=== PATIENT | male | born 1985 | race Caucasian/White ===

== ENCOUNTER 2018-03-23 07:18 | Inpatient (IN) | payer BC, OTHER ==
[~2018-03-23] VITALS: Ht 190.5 cm; Wt 81.6 kg
--- NOTE | 2018-03-23 17:50 | NUR ---
PRE ADMISSION Pt 32 y/o male from home. Pt alert and oriented to name, place, and time. [place]. Skin warm and dry to touch. Respirations even and unlabored. Pt was brought in with the help of his family. Stated they were concerned for him and encouraged him to come to treatment. Pt admitted for bzo/ ketmine/ meth withdrawal. Appears disheveled with clothes dirty. Dirt under both fingernails noted. Appears tired with eyes almost closing from time to time during assessment. Stated, " I'm just tired. I'm ready to hit the bed and crash." Cooperative but slightly guarded. 1st time in treatment. Anxious with some pressured speech noted. Denies any sweats, nausea, headache, a/v hallucinations at this time, and no hand tremors noted. Pt does not appear intoxicated at the moment. Initial ciwa=2. Explained unit rules to pt with acknowledgment.
--- NOTE | 2018-03-23 18:00 | NUR ---
ADMISSION Pt 32 y/o male from home. Pt alert and oriented to name, place, and time. [place]. Skin warm and dry to touch. Respirations even and unlabored. Pt was brought in with the help of his family. Stated they were concerned for him and encouraged him to come to treatment. Pt admitted for bzo/ ketmine/ meth withdrawal. Appears disheveled with clothes dirty. Dirt under both fingernails noted. Appears tired with eyes almost closing from time to time during assessment. Stated, " I'm just tired. I'm ready to hit the bed and crash." Cooperative but slightly guarded. 1st time in treatment. Anxious with some pressured speech noted. Denies any sweats, nausea, headache, a/v hallucinations at this time, and no hand tremors noted. Pt does not appear intoxicated at the moment. Initial ciwa=2. Substance hx: Klonopin 6mg po 5 days / week x 1year. Last used 6mg 03/19/18 in the afternoon; adderrall 20 mg po 5 days/ week. Last used 20mg 03/22/18 in the afternoon; ketamine 0.5gm IV daily x months. unknown last dose on 03/19/18; marijuana unknown dose and uses weekly x 1 year. Used last some time last month in 01/2018 and unknown amount; methamphetamine unknown dosage smoke 3-4 days / week. unknown last amount on 03/22/18 in the afternoon; xanax unknown dosage. unknown last amount used last 1 year ago; GHB unknown amount used 1 year ago. Initial VS: P=65 T=98.0 R=16 O2=99%@RA VS=635/66 current medical hx: adhd (1990) taking adderall as prescribed anxiety (2002) takes klonopin as prescribed bipolar (2018) take geodon as prescribed hiv (2007) takes medication as prescribed States he takes the medications and substances whenever he is stressed, usually at work. Stated he mainly uses the substances about 5 days a week when he is working. Denies ever attempting to stop taking any substances. Restated that family was forcing him to be admitted to get help. Pt hesitant about being admitted. Stated he did have an episode of blacking out when he took too much GHB 1 year ago( unsure of exact date and amount) and was sent to a hospital but does not remember which hospital, but was not admitted and only treated there for a few hours and discharged. Denies any SI/SA/HI. Denies ever being put on 5150. Oriented pt to room and unit. Addendum: 03/23/18 at 1934 by LD EVANS RN additional Skin clear. aware with new orders for prn ativan, noted and carried out.
[2018-03-23] MEDS ORDERED: MAGNESIUM HYDROXIDE 30 ML LIQUID UDC PO PRN (18:15)
[2018-03-23] MEDS ORDERED: ONDANSETRON 4 MG/2 ML VIAL IM PRN (18:15)
[2018-03-23] MEDS ORDERED: HYDROXYZINE PAMOATE 25 MG CAPSULE PO PRN (18:15)
[2018-03-23] MEDS ORDERED: diphenhydrAMINE 50 MG CAPSULE PO PRN (18:15)
[2018-03-23] MEDS ORDERED: ONDANSETRON ODT 4 MG TAB.RAPDIS SL PRN (18:15)
[2018-03-23] MEDS ORDERED: MIRALAX 17 GM POWD.PACK PO PRN (18:15)
[2018-03-23] MEDS ORDERED: ACETAMINOPHEN 325 MG TABLET PO PRN (18:15)
[2018-03-23] MEDS ORDERED: CLONIDINE HCL 0.1 MG TABLET PO PRN (18:15)
[2018-03-23] MEDS ORDERED: MAG HYDROX/AL HYDROX/SIMETH 30 ML LIQUID UDC PO PRN (18:15)
[2018-03-23] MEDS ORDERED: LORAZEPAM 1 MG TABLET PO PRN (18:15)
[2018-03-23] MEDS ORDERED: IBUPROFEN 600 MG TABLET PO PRN (18:15)
[2018-03-23 18:47] LABS: BASOPHILS % (AUTO) 0.7 % (0.0-2.0); EOSINOPHILS # (AUTO) 0.1 K/uL (0.0-0.7); EOSINOPHILS % (AUTO) 1.4 % (0.0-7.0); HEMATOCRIT 36.4 % (36.7-47.1); HEMOGLOBIN 12.6 g/dL (12.5-16.3); LYMPHOCYTES # (AUTO) 2.7 K/uL (20.0-40.0); LYMPHOCYTES % (AUTO) 46.6 % (20.5-51.5); MEAN CORPUSCULAR HEMOGLOBIN 36.8 uug (23.8-33.4); MEAN CORPUSCULAR HGB CONC 35 g/dL (32.5-36.3); MEAN CORPUSCULAR VOLUME 106.6 fL (73.0-96.2); MONOCYTES # (AUTO) 0.3 K/uL (2.0-10.0); MONOCYTES % (AUTO) 5.6 % (0.0-11.0); NEUTROPHILS # (AUTO) 2.6 K/uL (1.8-8.9); NEUTROPHILS % (AUTO) 45.7 % (38.5-71.5); PLATELET COUNT (AUTO) 281 K/uL (152-348); RED BLOOD CELL COUNT(AUTO) 3.42 MIL/uL (4.06-5.63); WHITE BLOOD COUNT (AUTO) 5.7 K/uL (3.6-10.2)
[2018-03-23 19:00] LABS: ALANINE AMINOTRANSFERASE 37 U/L (16-63); ALKALINE PHOSPHATASE 81 U/L (50-136); ASPARTATE AMINOTRANSFERASE 21 U/L (15-37); BILIRUBIN,TOTAL 0.3 mg/dL (0.2-1.0); CARBON DIOXIDE 31 mmol/L (21-32); CHLORIDE 103 mmol/L (98-107); CREATININE 0.9 mg/dL (0.6-1.3); GLUCOSE 57 mg/dL (74-106); MAGNESIUM 1.7 mg/dL (1.8-2.4); POTASSIUM 3.6 mmol/L (3.5-5.1); TOTAL PROTEIN, SERUM 7.1 g/dL (6.4-8.2); UREA NITROGEN, BLOOD 12 mg/dL (7-18)
[2018-03-23 19:11] LABS: ETHANOL < 3 MG/DL (0-0)
[2018-03-23] MEDS ORDERED: THIAMINE HCL 200 MG/2 ML VIAL IM ONE (19:30)
[2018-03-23] MEDS ORDERED: ZIPR40CA2 PO (19:35)
--- NOTE | 2018-03-23 19:50 | NUR ---
START OF SHIFT NOTE Rcvd report from outgoing nurse. Pt is a 32 y/o male A/O to person, place, time, and purpose. Pt was admitted for medically supervised withdrawal from Klonopin and Xanax. Pt has been c/o anxiety, mild agitation, and sweats. Pt presents w/ flat affect, lethargy, and depressed mood. Pt denies S/I and H/I. No PRN medication was given during previous shift. Last CIWA 2 upon admission. Call light is within reach. Pt will continue to be monitored and needs met.
[2018-03-23 20:00] VITALS: BP 107/59
--- NOTE | 2018-03-23 20:00 | NUR ---
CIWA ASSESSMENT CIWA 3. Pt is presenting w/ anxiety, agitation, and sweats. V/S: T:97.9, P:76, RR:16, SPO2:99, BP:107/59.
[2018-03-23] MEDS ORDERED: MAGNESIUM OXIDE 400 MG TABLET PO ONE (21:30)
[2018-03-23 22:09] LABS: *AMPHETAMINE, URINE POSITIVE (NEGATIVE); *BARBITURATE, URINE NEGATIVE (NEGATIVE); *CANNABINOID, URINE NEGATIVE (NEGATIVE); *COCCAINE, URINE NEGATIVE (NEGATIVE); *OPIATE, URINE POSITIVE (NEGATIVE); *PHENCYCLIDINE SCREEN,URINE NEGATIVE (NEGATIVE)
[2018-03-23] MEDS ORDERED: DIAZEPAM 10 MG TABLET PO PRN ×2 (22:15)
[2018-03-23] MEDS ORDERED: DIAZEPAM 5 MG TABLET PO PRN (22:15)
--- NOTE | 2018-03-24 00:01 | NUR ---
CIWA DEFERRED Pt is in bed w/ his eyes closed. Pt's respirations are unlabored and even.
[2018-03-24] MEDS ORDERED: VALA100026 PO (00:34)
[2018-03-24] MEDS ORDERED: EFAV1TAB PO (00:36)
[2018-03-24] MEDS ORDERED: LEVO40CA PO (00:38)
[2018-03-24] MEDS ORDERED: PROP20TA7 PO (00:40)
[2018-03-24] MEDS ORDERED: CITA40TA11 PO (00:40)
[2018-03-24] MEDS ORDERED: ACET-2605 PO (00:41)
[2018-03-24] MEDS ORDERED: NEOM28.37 TP (00:42)
[2018-03-24] MEDS ORDERED: vitamin c (00:43)
[2018-03-24] MEDS ORDERED: [UNRECOGNIZED DRUG - OTHER] (00:44)
[2018-03-24] MEDS ORDERED: CHOL200016 PO (00:44)
[2018-03-24] MEDS ORDERED: TEA TREE OIL (00:45)
[2018-03-24] MEDS ORDERED: [UNRECOGNIZED DRUG - SUPPLY] (00:46)
[2018-03-24] MEDS ORDERED: NAPH30DR OP (00:47)
[2018-03-24] MEDS ORDERED: [UNRECOGNIZED DRUG - SUPPLY] (00:47)
--- NOTE | 2018-03-24 04:03 | NUR ---
CIWA DEFERRED Pt is in bed w/ his eyes closed. Pt's respirations are unlabored and even.
--- NOTE | 2018-03-24 07:15 | NUR ---
END OF SHIFT NOTE Endorsed pt to oncoming nurse. Pt is a 32 y/o male A/O to person, place, time, and purpose. Pt was admitted for medically supervised withdrawal from Klonopin and Xanax. Pt has been c/o anxiety, mild agitation, and sweats. Pt presents w/ flat affect, lethargy, and depressed mood. No PRN medication was given during the current shift. Pt was switched From PRN Ativan to Valium per Dr. Malik order. Pts fluid intake was 1050ml and he voided 3 times. Pt slept for 8 hrs. Last CIWA 3 @ 2130. Call light is within reach.
--- NOTE | 2018-03-24 07:58 | NUR ---
Start of shift note; Received report from night nurse. Patient is a 32 year old male admitted on 03/23/18 for Benzodiazepine , methamphetamine withdrawal. Patient was placed on PRN medication only. Patient presented with anxiety, anhedonia, difficult concentrating, avoidant to eye contact, fatigue, muscle aches, restless legs, yawning. Educated patient regarding unit protocol and policies, patient verbalized understanding. Encouraged patient to participate in group activities and therapies. All safety measures secured. Will continue to monitor patient.
[2018-03-24 08:00] VITALS: BP 114/64
--- NOTE | 2018-03-24 08:00 | NUR ---
CIWA score; Patient's current CIWA score is 5 manifested by anxiety, fatigue, intermittent perspiration, muscle aches, tremors, restless legs . Patient denies suicidal ideation. Will continue to monitor patient.
[2018-03-24] MEDS ORDERED: TUBERCULIN,PURIF.PROT.DERIV. 5 TU/0.1 ML TEST ID ONE (09:00)
--- NOTE | 2018-03-24 09:00 | NUR ---
UDS Clarification; Patient's UDS result came back positive for Opiates. Asked patient if he has been taking any type of opiate/opioid. Patient stated " I don't use any opiate, no pain killers and definitely not heroin. I am not sure why it came back positive. Maybe somebody slipped some pill in my drink or food but i have not used any opiate". No s/s of opioid withdrawal noted. Will continue to monitor patient.
[2018-03-24] MEDS: MULTIVITAMINS,THERAPEUTIC TABLET PO SCH (09:02)
[2018-03-24] MEDS: THIAMINE HCL 100 MG TABLET PO SCH (09:02)
[2018-03-24] MEDS: FOLIC ACID 1 MG TABLET PO SCH (09:02)
[2018-03-24] MEDS: CITALOPRAM 20 MG TABLET PO SCH (11:31)
[2018-03-24] MEDS: ZIPRASIDONE 20 MG CAPSULE PO SCH (11:31)
[2018-03-24 12:00] VITALS: BP 119/68
--- NOTE | 2018-03-24 12:00 | NUR ---
CIWA score; Patient's current CIWA score is 7 manifested by anxiety, fatigue, intermittent perspiration, muscle aches, tremors, restless legs . Patient denies suicidal ideation. Patient refused PRN medications at this time. Will continue to monitor patient.
[2018-03-24] MEDS ORDERED: ACETAMINOPHEN ES 500 MG TABLET PO PRN (15:00)
[2018-03-24] MEDS ORDERED: NEOMY/BACITRAC/POLYMI OINT 28.35 GM TUBE TP PRN (15:00)
[2018-03-24] MEDS ORDERED: CHOL20004 PO (15:15)
[2018-03-24] MEDS: VALACYCLOVIR 1000 MG PO SCH (15:36)
[2018-03-24] MEDS: PROPRANOLOL HCL 20 MG TABLET PO SCH (15:36)
[2018-03-24] MEDS: ATRIPLA OT SCH (15:36)
[2018-03-24 16:00] VITALS: BP 99/64
--- NOTE | 2018-03-24 16:35 | NUR ---
CIWA score; Patient's current CIWA score is 7 manifested by anxiety, fatigue, intermittent perspiration, muscle aches, tremors, restless legs . Patient denies suicidal ideation. Patient refused PRN medications at this time. Patient received other scheduled medications as ordered.Will continue to monitor patient.
--- NOTE | 2018-03-24 18:28 | NUR ---
End of shift note; Patient is AOX4, presented with anxiety, fatigue, intermittent perspiration, muscle aches, tremors, restless legs . Patient denies suicidal ideation. Patient's last CIWA score is 7, refused to take PRN Valium. Encouraged patient to verbalize feelings and to participate in group activities and therapy. Patient refused to participate today. Patient stated "I just want to rest today in my room". Patient was educated regarding unit protocol and policies, verbalized understanding. All safety measures secured.
--- NOTE | 2018-03-24 19:57 | NUR ---
START OF SHIFT NOTE Rcvd report from the outgoing nurse. Pt is a 32 y/o male A/O to person, place, time, and purpose. Pt was admitted for medically supervised withdrawal from Klonopin. Pt has been presenting w/ anxiety, agitation, lethargy, depressed and withdrawn mood, sweats, and tremors. Pt denies S/I and H/I. Pt rcvd no PRN medications during previous shift. Last CIWA 7 @ 1600. Call light is within reach. Pt will continue to be monitored and needs met.
--- NOTE | 2018-03-24 20:00 | NUR ---
CIWA ASSESSMENT CIWA 8. Pt is presenting w/ anxiety, agitation, sweats, and tremors. Pt is withdrawn and isolative, choosing to sleep in his room most of the time. V/S: T:98.5, P:60, RR:14, SPO2:98, BP:105/56.
[2018-03-24 20:02] VITALS: BP 105/56
--- NOTE | 2018-03-25 00:03 | NUR ---
CIWA DEFERRED Pt is in bed w/ his eyes closed. Pt's respirations are unlabored and even.
--- NOTE | 2018-03-25 04:04 | NUR ---
CIWA ASSESSMENT CIWA 6. Pt is presenting w/anxiety, sweats, agitation, and tremors. V/S: T:98.4, P:72, RR:16, SPO2:99, BP:114/66.
[2018-03-25 04:05] VITALS: BP 114/66
--- NOTE | 2018-03-25 07:15 | NUR ---
END OF SHIFT NOTE Endorsed pt to the oncoming nurse. Pt is a 32 y/o male A/O to person, place, time, and purpose. Pt was admitted for medically supervised withdrawal from Klonopin. Pt has been presenting w/ anxiety, agitation, lethargy, depressed and withdrawn mood, sweats, and tremors. Pt denies S/I and H/I. Pt rcvd no PRN medications during current shift. Last CIWA 6 @ 0400. Call light is within reach.
[2018-03-25 07:18] LABS: BASOPHILS % (AUTO) 0.5 % (0.0-2.0); EOSINOPHILS # (AUTO) 0.1 K/uL (0.0-0.7); HEMATOCRIT 36.3 % (36.7-47.1); HEMOGLOBIN 12.6 g/dL (12.5-16.3); LYMPHOCYTES # (AUTO) 2.3 K/uL (20.0-40.0); LYMPHOCYTES % (AUTO) 43.9 % (20.5-51.5); MEAN CORPUSCULAR HEMOGLOBIN 37.2 uug (23.8-33.4); MEAN CORPUSCULAR HGB CONC 35 g/dL (32.5-36.3); MEAN CORPUSCULAR VOLUME 107.1 fL (73.0-96.2); MONOCYTES # (AUTO) 0.3 K/uL (2.0-10.0); MONOCYTES % (AUTO) 5.5 % (0.0-11.0); NEUTROPHILS # (AUTO) 2.6 K/uL (1.8-8.9); NEUTROPHILS % (AUTO) 49.1 % (38.5-71.5); PLATELET COUNT (AUTO) 267 K/uL (152-348); RED BLOOD CELL COUNT(AUTO) 3.39 MIL/uL (4.06-5.63); WHITE BLOOD COUNT (AUTO) 5.3 K/uL (3.6-10.2)
--- NOTE | 2018-03-25 07:30 | NUR ---
Start of shift note; Received report from night nurse. Patient is a 32 year old male admitted on 03/23/18 for Benzodiazepine , methamphetamine withdrawal. Patient was placed on PRN medication only. Patient presented with anxiety, anhedonia, difficult concentrating, avoidant to eye contact, fatigue, muscle aches, restless legs, yawning. Educated patient regarding unit protocol and policies, patient verbalized understanding.Patient's last CIWA was 6. Patient slept for 6 hours. Encouraged patient to participate in group activities and therapies. All safety measures secured. Will continue to monitor patient.
[2018-03-25 08:00] VITALS: BP 123/68
--- NOTE | 2018-03-25 08:00 | NUR ---
CIWA score; Patient's current CIWA score is 9 manifested by anxiety, fatigue, intermittent perspiration, muscle aches, tremors, restless legs . Patient denies suicidal ideation. Patient refused PRN medications offered. Will continue to monitor patient.
[2018-03-25] MEDS: ZIPRASIDONE 20 MG CAPSULE PO SCH (08:51)
[2018-03-25] MEDS: FOLIC ACID 1 MG TABLET PO SCH (08:51)
[2018-03-25] MEDS: MULTIVITAMINS,THERAPEUTIC TABLET PO SCH (08:51)
[2018-03-25] MEDS: CITALOPRAM 20 MG TABLET PO SCH (08:51)
[2018-03-25] MEDS: PROPRANOLOL HCL 20 MG TABLET PO SCH (08:51)
[2018-03-25] MEDS: THIAMINE HCL 100 MG TABLET PO SCH (08:51)
[2018-03-25] MEDS: NEOMY/BACITRAC/POLYMI OINT 28.35 GM TUBE TP SCH ×2 (08:52→16:03)
[2018-03-25] MEDS: VALACYCLOVIR 1000 MG PO SCH (08:52)
[2018-03-25] MEDS: ATRIPLA OT SCH (08:52)
[2018-03-25] MEDS ORDERED: ATRIPLA PO SCH (09:48)
--- NOTE | 2018-03-25 10:23 | NUR ---
MD communication; Patient's magnesium is 1.6, MD gave verbal order for Magnesium Oxide 400mg PO one time for supplement. Order entered on [facility] per MD request. Will administered when verified by pharmacy.
[2018-03-25] MEDS ORDERED: MAGNESIUM OXIDE 400 MG TABLET PO ONE (10:30)
[2018-03-25 11:08] LABS: HEPATITIS B SURFACE AG Negative (Negative)
[2018-03-25 12:00] VITALS: BP 115/67
--- NOTE | 2018-03-25 12:00 | NUR ---
CIWA score; Patient's current CIWA score is 6 manifested by anxiety, fatigue, intermittent perspiration, muscle aches, tremors, restless legs . Patient denies suicidal ideation. Will continue to monitor patient.
--- NOTE | 2018-03-25 14:11 | NUR ---
Therapist prompted client to attend group therapy sessions.
[2018-03-25 16:00] VITALS: BP 120/78
--- NOTE | 2018-03-25 18:36 | NUR ---
End of shift note; Patient is AOX4, presented with anxiety, fatigue, intermittent perspiration, muscle aches, tremors, restless legs . Patient denies suicidal ideation. Patient's last CIWA score is 6. Encouraged patient to verbalize feelings and to participate in group activities and therapy. Patient refused to participate today. Patient is medically cleared for discharge tomorrow. Patient to be transferred to [facility]. Patient was educated regarding unit protocol and policies, verbalized understanding. All safety measures secured. Met all needs.
--- NOTE | 2018-03-25 19:30 | NUR ---
START OF SHIFT Pt is a 32 year old male admitted for Benzodiazepine , methamphetamine withdrawal. Pt was placed on PRN medication only. Pt is A/A/O X 4, received lying in bed in his room, c/o having generalized aches and pain and feeling tired.PRN med for pain offered but was declined.Patient's last CIWA was 6.Pt is scheduled for discharge tomorrow. All safety measures in place.Bed on lowest position with side rails x2 up for safety. Call light within reach, will continue to monitor.
[2018-03-25 20:00] VITALS: BP 116/71
[2018-03-25] MEDS ORDERED: THIA100T13 PO (21:00)
[2018-03-25] MEDS ORDERED: FOLI1TAB16 PO (21:00)
[2018-03-25] MEDS ORDERED: MULT-24 PO (21:00)
--- NOTE | 2018-03-26 | NUR ---
CIWA DEFERRED Pt is resting comfortably in bed with eyes closed;breathing is even and non labored; no s/s of distress noted; CIWA deferred due to patient being asleep;v/s refused,will continue to monitor.
--- NOTE | 2018-03-26 06:49 | NUR ---
END OF SHIFT Pt is a 32 year old male admitted on 03/23/18 for Benzodiazepine , methamphetamine withdrawal. Pt was placed on PRN medication only. Pt is A/A/O X 4.No PRN meds given last night.Pt slept 8 hrs,fluid intake was 900 mls,voided x 3.Patient's last CIWA was 5. Pt is scheduled for discharge today.All safety measures in place. Bed on lowest position with side rails x2 up for safety. Call light within reach, will endorse care to day shift.
--- NOTE | 2018-03-26 07:30 | NUR ---
START OF SHIFT Pt is a 32 y/o M admitted on 03/23/18 for medically supervised benzo, meth, ketamine, withdrawal. Pt has been on PRN medications for management of withdrawal symptoms. Pt slept 8 hours and last CIWA 5. Pt is medically cleared to be discharged today. Pt states he is anxious to be discharged today. Bed is on the lowest position with side rails x2 up and call light within reach. Safety measures in place. Will give endorsement to production shift supervisor nurse.
[2018-03-26 08:00] VITALS: BP 149/89
--- NOTE | 2018-03-26 08:00 | NUR ---
[facility] ASSESSMENT 6 Pt presents anxiety, mild agitation, intermittent sweating and slight tremors are felt. Pt reports he is anxious about leaving detox.
[2018-03-26] MEDS: THIAMINE HCL 100 MG TABLET PO SCH (08:33)
[2018-03-26 08:34] VITALS: BP 149/89
[2018-03-26] MEDS: CITALOPRAM 20 MG TABLET PO SCH (08:34)
[2018-03-26] MEDS: FOLIC ACID 1 MG TABLET PO SCH (08:34)
[2018-03-26] MEDS: MULTIVITAMINS,THERAPEUTIC TABLET PO SCH (08:34)
[2018-03-26] MEDS: PROPRANOLOL HCL 20 MG TABLET PO SCH (08:34)
[2018-03-26] MEDS: ZIPRASIDONE 20 MG CAPSULE PO SCH (08:34)
[2018-03-26] MEDS: NEOMY/BACITRAC/POLYMI OINT 28.35 GM TUBE TP SCH (08:35)
[2018-03-26] MEDS: VALACYCLOVIR 1000 MG PO SCH (08:35)
--- NOTE | 2018-03-26 11:06 | NUR ---
DISCHARGE NOTE Pt is in stable condition, VS wnl. Pt discharge instructions given and pt verbalized understanding. Last CIWA 6. Pt has left the building at 1106 today on 03/26/18 with all belongings, prescriptions, home meds, and discharge paperwork. Pt has been picked up by [employer].
== END 2018-03-26 11:06 | disposition other institution (70) | DRG 895 ==
LOC: SRC 16:26
PROVIDERS: ADMIT Family Medicine Addiction Medicine; ATTEND Family Medicine Addiction Medicine
PROC: HZ2ZZZZ Detoxification Services for Substance Abuse Treatment (ICD-10-PCS; principal; 2018-03-23)
PROC: HZ31ZZZ Individual Counseling for Substance Abuse Treatment, Behavioral (ICD-10-PCS; 2018-03-25)
DX: F13.230 Sedative, hypnotic or anxiolytic dependence with withdrawal, uncomplicated (principal); E83.42 Hypomagnesemia; D53.9 Nutritional anemia, unspecified; F90.9 Attention-deficit hyperactivity disorder, unspecified type; F17.210 Nicotine dependence, cigarettes, uncomplicated; F31.9 Bipolar disorder, unspecified; F41.9 Anxiety disorder, unspecified; Z79.899 Other long term (current) drug therapy; F15.23 Other stimulant dependence with withdrawal; F16.90 Hallucinogen use, unspecified, uncomplicated
CPT/HCPCS: 36415; 80307; 80324; 80361; 83735; 85025; 86592; 86705; 86803; 87340; 87806; A4663; G0480; J3411